=== PATIENT | female | born 2005 | race Caucasian/White ===

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

== ENCOUNTER 2024-01-22 19:46 | Outpatient (CLI) | payer OTHER, SELFPAY ==
[2024-01-22 20:47] LABS: OBXCEM ROM Plus Negative (Negative)
== END 2024-01-22 20:45 | disposition home or self-care (01) ==
LOC: ANHOBOP 20:34 → ANHLDR 20:35
PROVIDERS: PCP Pediatrics; Visit Provider Obstetrics & Gynecology
DX: O42.90 Premature rupture of membranes, unspecified as to length of time between rupture and onset of labor, unspecified weeks of gestation (principal); Z3A.00 Weeks of gestation of pregnancy not specified
CPT/HCPCS: 59025; 84112

== ENCOUNTER 2024-02-01 05:02 | Inpatient (IN) | payer OTHER, SELFPAY ==
[2024-02-01] VITALS (14 sets, daily range): BP systolic 113–129; BP diastolic 69–92; PULSE 62–121; RESP 16–18; TEMP 36.6–36.7; BMI 22.1
--- NOTE | 2024-02-01 05:24 | LDADM ---
This patient, Tony Portillo, was admitted to Labor/Delivery/Recovery 107 on 02/01/24 at 05:02. Plans for labor, pain management and were discussed with patient. Patient/family oriented to hospital policies and general routines including ID bracelet, bed and alarms, visiting hours, pain management, procedures, bathroom and other care routines, personal items, smoking policy, room service/diet and guest tray routines, infant security routines, and visiting hours. Patient/Family are encouraged to report perceived risks to care and to ask questions if they do not understand what they are told or what they should do. See OBIX for further documentation.
[2024-02-01 05:38] LABS: Basophils Percent Auto 0.2 % (0.2-1.2); Eosinophils Absolute Auto 0.1 K/mm3 (0-0.3); Eosinophils Percent Auto 0.7 % (0-4.4); Hematocrit 34.6 % (37.0-47.0); Hemoglobin 11.7 g/dL (12.0-15.0); Immature Granulocyte Absolute 0.06 K/mm3 (0.00-0.031); Immature Granulocyte Percent A 0.5 % (0-0.5); Lymphocytes Absolute Auto 2.31 K/mm3 (0.9-3.2); Lymphocytes Percent Auto 20.4 % (18.3-44.2); Mean Corpuscular HGB Conc 33.8 g/dl (32-36); Mean Corpuscular Volume 85.9 fl (80-100); Mean Platelet Volume 10.8 fl (7.4-10.4); Monocytes Absolute Auto 0.7 K/mm3 (0.1-0.6); Monocytes Percent Auto 6.2 % (2.6-8.5); Neutrophils Absolute Auto 8.2 K/mm3 (1.3-6.7); Platelet Count Result 242 k/mm3 (150-375); Red Blood Count 4.03 M/mm3 (4.2-5.4); Red Cell Distribution Width 13.2 % (11.5-14.5); White Blood Count 11.3 K/mm3 (4.5-10.0)
[2024-02-01] MEDS: LACTATED RINGERS 1,000 ML 125 ML IV CONT ×2 (05:44→14:00)
[2024-02-01] MEDS: OXYTOCIN 30 UNITS/NS 500 ML 30 UNITS/500 ML BAG 6 UNITS IV CONT (05:45)
[2024-02-01 06:29] LABS: HIV 1/2 Ab P24 Ag Result Negative (Negative)
[2024-02-01 07:38] LABS: Rapid Plasma Reagin Non-Reactive (NonReactive)
--- NOTE | 2024-02-01 08:33 | WPDHPUPDATE1 ---
History and Physical Update Update Date/Time: 02/01/24 08:33 18-year-old primigravida at term who presents for elective induction of labor. She has a very low presenting part -vertex. Reassuring status. Pitocin has been started. Active management of labor History and Physical has been reviewed, including an updated exam of the patient. There are NO changes in the patient's condition. Risks, benefits, and alternatives have been discussed and questions answered. Patient agrees to proceed with procedure.
--- NOTE | 2024-02-01 19:13 | P.PNOB_ITS ---
OB - PN: Subj Subjective Date/time seen: 02/01/24 19:13 OB - PN: Obj Data Labs 02/01/24 05:29 Labs: Laboratory Results - last 24 hr 02/01/24 05:29 WBC 11.3 H RBC 4.03 L Hgb 11.7 L Hct 34.6 L MCV 85.9 MCH 29.0 MCHC 33.8 RDW 13.2 Plt Count 242 MPV 10.8 H Immature Gran % (Auto) 0.5 Neut % (Auto) 72.0 Lymph % (Auto) 20.4 [place] % (Auto) 6.2 Eos % (Auto) 0.7 Baso % (Auto) 0.2 Lymph # (Auto) 2.31 [place] # (Auto) 0.7 H Eos # (Auto) 0.1 Baso # (Auto) 0.0 Abs Immat Gran (auto) 0.06 H Absolute Neuts (auto) 8.2 H Absolute Nucleated RBC 0.000 Nucleated RBC % 0.0 RPR Non-reactive HIV 1&2 Ab/P24 Ag 4thGn Negative Blood Type O Negative Antibody Screen Negative OB - PN A/P Assessment and Plan (1) Term : Code(s): Z34.90 - Encounter for supervision of normal , unspecified, unspecified trimester Status: Acute Assessment and Plan: 18-year-old 1 at 39 weeks, elective induction, on Pitocin now for 14 hours, no/very little cervical change. Unable to rupture membranes due to patient compliance and difficulty of the exam. With all dosing with Cytotec. She was offered this and ruptured membranes. She elected Augment labor induction with with Cytotec. reassuring status. Time Spent With Patient Time: Total time spent is greater than 50% in coordination of care (as documented) at patient's floor/unit and/or counseling patient:
[2024-02-01] MEDS: miSOPROStol 25 MCG TABLET 50 MCG BUCCAL (21:04)
[2024-02-02] VITALS (173 sets, daily range): BP systolic 105–149; BP diastolic 67–102; PULSE 55–226; RESP 16–18; TEMP 36.3–37.1; O2SAT 81–100
[2024-02-02] MEDS: CYCLOBENZAPRINE HCL 5 MG TABLET PO (00:26)
[2024-02-02] MEDS: miSOPROStol 25 MCG TABLET 50 MCG BUCCAL (01:00)
[2024-02-02] MEDS: fentaNYL CITRATE INJ (*CRX) 100 MCG/2 ML VIAL 50 MCG IV PUSH ×2 (05:10→06:46)
[2024-02-02] MEDS: LACTATED RINGERS 1,000 ML 125 ML IV CONT (07:22)
--- NOTE | 2024-02-02 07:26 | P.PNAN_ITS ---
Anes - Initial Pre Proc Eval Date/Time: 02/02/24 07:26 Surgeon: Mehdi Vasquez MD Pre Op Diagnosis: IOL Patient Data Age: 18 Gender: F Height: 1.6 m Weight: 56.6 kg Last Vital Signs Temp 37.0 C 02/02/24 07:14 Pulse 67 02/02/24 07:25 Resp 18 02/02/24 07:14 BP 131/78 02/02/24 07:25 Pulse Ox 95 02/02/24 07:23 O2 Del Method Room Air 02/01/24 05:23 Allergies Allergy/AdvReac Type Severity Reaction Status Date / Time pineapple Allergy Unknown TONGUE/THROAT Verified 01/27/24 12:33 [place] [employer] Home Medications Medication Instructions Recorded Confirmed Type vits no.126-ferrous fum 1 tablet PO DAILY 01/27/24 01/27/24 History 28 mg iron-folic acid 800 mcg tablet (Classic ) Laboratory Tests 02/01/24 05:29 RPR Non-reactive (NonReactive) Patient hx anesthesia problems: none Family hx anesthesia problems: none Results Review: All pre-operative results and documents have been reviewed as part of the pre- operative evaluation. [facility] Past Medical History Medical History Fusion of spine Family History Family History Other Diabetes mellitus Social History Social History Smoking status: Current every day smoker Tobacco type: e-cigarettes/vaping Second hand tobacco smoke exposure: Yes Substance use: never Do You Feel Safe in your Home?: Yes Lack of Transportation: No Lack of Food: Never True Current Housing: I Have Housing Concerned About Future Housing: No Difficulty Paying Gas/Electric Bills: No Difficulty Paying for Meds: No Currently Unemployed: No Education: High School Diploma/GED Difficulty w/ Childcare or Family Care: No Spiritual care concerns: No Anes - Eval Final PreProcedure Day of Procedure 02/02/24 07:26 Patient weight: normal Heart: regular rate and rhythm Neurological: alert and oriented ASA classification: II Emergent: no Anesthetic plan: proceed Anesthesia type and monitoring: regional epidural and standard monitoring Results Review: All pre-operative results and documents have been reviewed as part of the pre- operative evaluation. Informed Consent: The patient's anesthetic plan and its attendant risks and benefits were discussed with the patient/family/POA. Questions were solicited and answers provided to the satisfaction of the patient/family/POA.
--- NOTE | 2024-02-02 08:19 | PM.OBPNVD ---
OB - PN: Subj Subjective Date/time seen: 02/02/24 08:19 Interval history: 18-year-old 1 at 39 weeks who presented for elective induction. was given Pitocin for several hours yesterday. Cytotec was given overnight. Now we have some advanced cervical dilation at 4 cm and 90%. Artificial rupture of membranes was performed. Clear fluid. Very low station. Continue active management of labor. OB - PN: Obj Data Labs 02/01/24 05:29 OB - PN A/P Time Spent With Patient Time: Total time spent is greater than 50% in coordination of care (as documented) at patient's floor/unit and/or counseling patient:
--- NOTE | 2024-02-02 13:58 | PM.OBPRVD ---
OB - Vaginal Delivery Note Procedure Delivery date: 02/02/24 Induction method: AROM, Per Misoprostol Protocol and Per Pitocin Protocol Delivery monitor: External FHT and Internal Uterine Route of delivery: Indication for instrumentation: other (Arrest of descent) Episiotomy description: Midline Delivery repair: vicryl Specimen: No Quantitative Blood Loss (ml): 150 Anesthesia type: Epidural Disposition: Floor Complications: No immediate complications Procious Baby Date of : 02/02/24 Gestational Age by Date: 39 Narrative: vacuum assisted delivery for maternal exhaustion, poor expulsive effort, and arrest of descent. vacuum was applied with the head in the CRISTINA position and a +4 to +5 station. Outlet vacuum over 2 pushes with 2 pulls and 1 pop-off in the 1st pull. Epidural anesthesia, midline episiotomy.
[2024-02-02] MEDS: OXYTOCIN 30 UNITS/NS 500 ML 30 UNITS/500 ML BAG 125 UNITS IV CONT (14:01)
[2024-02-02] MEDS: BENZOCAINE 20% AER SPR (*SP) 56 GM CAN 1 SPRAY TOPICAL (16:13)
[2024-02-02] MEDS: WITCH HAZEL 40 PADS 1 PAD TOPICAL (16:13)
[2024-02-02] MEDS: IBUPROFEN 600 MG TABLET PO ×2 (16:13→21:50)
[2024-02-02] MEDS: ACETAMINOPHEN 325 MG TABLET 650 MG PO ×2 (16:14→21:51)
[2024-02-03] MEDS: WITCH HAZEL 40 PADS 1 PAD TOPICAL ×2 (04:30→19:29)
[2024-02-03] MEDS: IBUPROFEN 600 MG TABLET PO ×3 (04:30→19:31)
[2024-02-03] MEDS: ACETAMINOPHEN 325 MG TABLET 650 MG PO ×2 (04:31→16:05)
[2024-02-03 04:36] VITALS: BP 120/76; PULSE 70; RESP 18; TEMP 36.6; O2SAT 99
[2024-02-03 05:09] LABS: Hemoglobin 9.5 g/dL (12.0-15.0)
--- NOTE | 2024-02-03 08:19 | PM.OBPNVD ---
OB - PN: Subj Subjective Date/time seen: 02/03/24 08:19 Interval history: 18-year-old 1 at 39 weeks who presented for elective induction. was given Pitocin for several hours yesterday. Cytotec was given overnight. Now we have some advanced cervical dilation at 4 cm and 90%. Artificial rupture of membranes was performed. Clear fluid. Very low station. Continue active management of labor. Patient comments: no complaints, pain well controlled, incisional pain, tolerating diet and flatus present OB - PN: Obj Data Labs 02/03/24 04:24 Labs: Laboratory Results - last 24 hr 02/03/24 04:24 Hgb 9.5 L Hct 28.0 L Blood Type O Negative OB - PN A/P Plan day: 1 Plan: routine care Comments: No problems, routine care Time Spent With Patient Time: Total time spent is greater than 50% in coordination of care (as documented) at patient's floor/unit and/or counseling patient: Exam Const: General: comfortable, no acute distress and alert Resp: Effort & Inspection: normal respiratory effort Auscultation: no crackles, no rales and no rhonchi Cardio: Rate: regular rate Heart sounds: no click, no murmurs and no rubs GI: Inspection: non-distended GI Palp: No Tenderness to palpation present (GI) Auscultation: normal bowel sounds Other: Incision - CDI Extrem: General: normal to inspection, no pedal edema and no calf tenderness
[2024-02-03 09:00] VITALS: BP 107/74; PULSE 62; RESP 16; TEMP 36.8; O2SAT 99
--- NOTE | 2024-02-03 09:13 | PC.NURSE ---
Introductions were made, then consulted with patient to assess needs related to . Mother led the conversation with her?plans to feed?her infant and the?experience so far. Infant is currently in level 2 nursery so mother is in level 2. Mother states that her last feeding was good with offering her pumped breastmilk before latching to the breast. Mother is also confident with working with her breast pump and denies questions at this time. Mother instructed to call this RN if help is needed for her next feeding or if questions arise. Resources used for education were facilitated with the new patient folder, feeding sheet, and name written on the communication board. Parents voiced understanding of information, demonstrated learning and will call if there is a request for assistance. Reported to the Primary RN.
[2024-02-03] MEDS: POLYSACCHARIDE IRON COMPLEX 150 MG CAPSULE PO ×2 (10:02→16:05)
[2024-02-03] MEDS: MULTIVIT/MIN/PREN/FOL AC/IRON TABLET 1 TAB PO (10:03)
[2024-02-03] MEDS: DOCUSATE SODIUM 100 MG CAPSULE PO ×2 (10:06→16:05)
[2024-02-03] MEDS: RHO(D) IMMUNE GLOBULIN 300 MCG/2 ML SYRINGE IM (12:48)
[2024-02-03 19:35] VITALS: BP 108/77; PULSE 95; RESP 16; TEMP 36.9; O2SAT 99
[2024-02-04] MEDS: ACETAMINOPHEN 325 MG TABLET 650 MG PO ×3 (02:54→17:17)
[2024-02-04] MEDS: IBUPROFEN 600 MG TABLET PO ×3 (02:55→17:17)
[2024-02-04 07:45] VITALS: BP 124/86; PULSE 73; RESP 16; TEMP 37.2; O2SAT 97
--- NOTE | 2024-02-04 08:53 | PM.OBPNVD ---
OB - PN: Subj Subjective Date/time seen: 02/04/24 08:53 Interval history: 18-year-old 1 at 39 weeks who presented for elective induction. was given Pitocin for several hours yesterday. Cytotec was given overnight. Now we have some advanced cervical dilation at 4 cm and 90%. Artificial rupture of membranes was performed. Clear fluid. Very low station. Continue active management of labor. Patient comments: no complaints, pain well controlled and tolerating diet OB - PN: Obj Data Labs 02/03/24 04:24 Labs: Laboratory Results - last 24 hr 02/03/24 04:24 Blood Type O Negative Antibody Screen Negative Screen Negative Baby's Blood Type A pos Baby's PETE Positive Doses of RhIg Required 1 OB - PN A/P Plan day: 2 Plan: routine care and discharge home Time Spent With Patient Time: Total time spent is greater than 50% in coordination of care (as documented) at patient's floor/unit and/or counseling patient: Exam Const: General: comfortable and no acute distress Resp: Effort & Inspection: normal respiratory effort Auscultation: no rales, no rhonchi and no wheezes Cardio: Rate: regular rate Heart sounds: no click, no murmurs and no rubs GI: GI Palp: Yes Soft to palpation and No Tenderness to palpation present (GI) Auscultation: normal bowel sounds Extrem: General: normal to inspection, no pedal edema and no calf tenderness
--- NOTE | 2024-02-04 08:53 | PM.OBDSVD ---
DS: Admitting Diagnosis Discharge Date 02/04/2024 Admitting Diagnosis term DS: Discharge Diagnosis Discharge Diagnosis (1) Term delivered: Code(s): O80 - Encounter for full-term uncomplicated delivery Status: Acute OB - DS: Summary OB Procedures : None OB Procedures Intrapartum: Spontaneous Vag Delivery OB Procedures: : None Peripartum Data Episiotomy description: Midline Time Spent with Patient Time attestation: Total time spent providing and/or coordinating discharge services: DS: Data Data Completed and Pending Labs on day of discharge: Labs from last 24 hours 02/03/24 04:24 Blood Type O Negative Antibody Screen Negative Screen Negative Baby's Blood Type A pos Baby's PETE Positive Doses of RhIg Required 1 Discharge Plan Discharge Discharging Clinician: Mehdi Vasquez Patient Disposition: Home, Self-Care Activity: pelvic rest Diet: regular Patient Instructions: Antibiotic Form Stand Alone Forms: General Discharge Information Follow-up/Referrals: Mehdi Vasquez MD [Physician] - Discharge Medications: Continued Classic 28 mg iron- 800 mcg Tablet 1 tablet PO DAILY Date of admission: 02/01/24 05:02 Primary Care Provider: Glenroy*Marina Admitting Provider: Mehdi Vasquez Attending physician on admission: Mehdi Vasquez Condition: Stable
[2024-02-04] MEDS: DOCUSATE SODIUM 100 MG CAPSULE PO ×2 (09:17→17:17)
[2024-02-04] MEDS: POLYSACCHARIDE IRON COMPLEX 150 MG CAPSULE PO ×2 (09:17→17:17)
[2024-02-04] MEDS: MULTIVIT/MIN/PREN/FOL AC/IRON TABLET 1 TAB PO (09:17)
--- NOTE | 2024-02-04 13:13 | PCCCNOTE ---
Met with pt. today. FOB and family at bedside including paternal grandmother and other paternal family members. This is pt.'s first child. Pt. lives at home with FOB Yogi. Has all necessary baby supplies including a crib, carseat, clothing, diapers etc. Hopes to breast feed at discharge and already has breast pump at home. resources provided at bedside for review. Pt. and family deny any needs. Pt. has supportive family on Yogi's side.
[2024-02-04] MEDS: BENZOCAINE 20% AER SPR (*SP) 56 GM CAN 1 SPRAY TOPICAL (17:16)
[2024-02-04] MEDS: WITCH HAZEL 40 PADS 1 PAD TOPICAL (17:16)
--- NOTE | 2024-02-04 17:41 | PC.NURSE ---
Pt to be discharged to a ALB, baby has to stay for further evaluation. Discharge instructions given
[2024-02-07 09:50] VITALS: BP 112/71; PULSE 83; RESP 18; TEMP 36.8; O2SAT 100
== END 2024-02-04 17:42 | disposition home or self-care (01) | DRG 560 ==
LOC: ANHLDR 05:05 → ANHOB2 02-02 17:07
PROVIDERS: Admitting Provider Obstetrics & Gynecology; PCP Pediatrics; Visit Provider Obstetrics & Gynecology
DX: O62.1 Secondary uterine inertia (principal); Z3A.39 39 weeks gestation of pregnancy; Z37.0 Single live birth
CPT/HCPCS: 36415; 85014; 85018; 85025; 85461; 86592; 86703; 86850; 86900; 86901; 90384; A9270; G0432; J2590; J2790; J2795; J3010; J7120